=== PATIENT | female | born 1965 | race Caucasian/White ===

== ENCOUNTER 2018-01-07 19:57 | Emergency (ER) | payer OTHER ==
--- NOTE | 2018-01-07 22:29 | ER Document Report ---
ED General - General Chief Complaint: Head Injury Stated Complaint: PASSED OUT,HEAD INJURY Time Seen by Provider: 01/07/18 22:12 Notes: Patient is a 52-year-old female that comes emergency department for chief complaint of head injury and syncopal episode. She states that she went out on the porch to smoke, she states she remembers having a sharp lower abdominal cramps and then she woke up with her face on the ground. She has bruised swollen area over her left forehead. She states she bit her tongue. She denies history of seizures, she states she used to pass out frequently, she states that she remembers bearing down because of the abdominal pain and thinks this made her pass out. She denies nausea vomiting, fever or chills, chest pain , palpitations, dizziness, lightheadedness. She denies any current symptoms except for head/facial pain. She takes no daily medications, past medical history of hysterectomy, denies any other medical history. She denies alcohol or recreational drugs. TRAVEL OUTSIDE OF THE [place] IN LAST 30 DAYS: No - Related Data Allergies/Adverse Reactions: bee venom protein (honey bee) Allergy (Verified 01/07/18 20:10) Sulfa (Sulfonamide Antibiotics) Allergy (Verified 01/07/18 20:10) Past Medical History - General Information source: Patient - Social History Smoking Status: Current Every Day Smoker Chew tobacco use (# tins/day): No Smoking Education Provided: Yes - <3 min Frequency of alcohol use: None Drug Abuse: None Lives with: Family Family History: Reviewed & Not Pertinent Patient has suicidal ideation: No Patient has homicidal ideation: No Renal/ Medical History: Denies: Hx Peritoneal Dialysis Past Surgical History: Reports: Hx Hysterectomy, Hx Nose Surgery - sinus surg, nose surg, Hx Orthopedic Surgery - bunectomy - Immunizations Immunizations up to date: Yes Hx Diphtheria, Pertussis, Tetanus Vaccination: Yes Review of Systems - Review of Systems Constitutional: No symptoms reported EENT: No symptoms reported Cardiovascular: See HPI Respiratory: No symptoms reported Gastrointestinal: No symptoms reported Genitourinary: No symptoms reported Female Genitourinary: No symptoms reported Musculoskeletal: See HPI Skin: See HPI Hematologic/Lymphatic: No symptoms reported Neurological/Psychological: See HPI Physical Exam - Vital signs Vitals: Temp Pulse Resp BP Pulse Ox 98.6 F 72 16 155/74 H 97 01/07/18 20:35 01/07/18 20:35 01/07/18 20:35 01/07/18 20:35 01/07/18 20:35 - Notes Notes: GENERAL: Alert, interacts well. No acute distress. HEAD: Normocephalic; supraorbital hematoma with mild ecchymosis noted, no other injuries of the head noted EYES: Pupils equal, round, and reactive to light. Extraocular movements intact. ENT: Oral mucosa moist, tongue midline. [Nares patent, no nasal septal hematoma , TM's intact.] NECK: Full range of motion. Supple. Trachea midline. LUNGS: Clear to auscultation bilaterally, no wheezes, rales, or rhonchi. No respiratory distress. HEART: Regular rate and rhythm. No murmur ABDOMEN: Mild suprapubic tenderness, otherwise soft and benign abdomen. Non- distended. Bowel sounds present in all 4 quadrants. EXTREMITIES: Moves all 4 extremities spontaneously. No edema, normal radial and dorsalis pedis pulses bilaterally. No cyanosis. BACK: no cervical, thoracic, lumbar midline tenderness. No saddle anesthesia, normal distal neurovascular exam. NEUROLOGICAL: Alert and oriented x3. Normal speech. [cranial nerves II through XII grossly intact]. PSYCH: Normal affect, normal mood. SKIN: Warm, dry, normal turgor. No rashes or lesions noted. Course - Re-evaluation Re-evalutation: EKG shows sinus rhythm, normal NE, normal QTC, no T-wave inversions or ST segment changes in consecutive leads. Nonspecific intraventricular conduction delay. Patient had no chest pain, dizziness, she states that she was bearing down with her abdomen. Suggestive of vagal symptoms. CBC unremarkable, chemistry unremarkable, initial troponin is unremarkable. Urinalysis indicates infection. On examination patient does have suprapubic tenderness, upper abdomen is completely benign, back exam is normal, neurological exam is normal. Imaging of the face/brain shows no intracranial hemorrhage. Patient did bite her tongue but she insists that she was bearing down and then passed out, this did discuss possible seizure but this seems less likely based on her description. Specifically I questioned patient and she had no postictal phase whatsoever. Daughter confirms this. Daughter did not see her fall but denies any symptoms consistent with postictal phase. Discussed with patient. Discussed treatment for UTI, discussed syncopal episode and workup, recommended 1 troponin more because of uncertain cause of syncope, patient states that she is quite certain she was bearing down and had a vagal episode, she requests to leave, however she does agree to follow-up with primary care and she will return if she worsens, discussed return precautions. Discussed head injury precautions in detail with patient and daughter as well. They state understanding and agreement. - Vital Signs Vital signs: Temp Pulse Resp BP Pulse Ox 98.0 F 63 16 160/92 H 97 01/08/18 01:09 01/08/18 01:09 01/08/18 01:09 01/08/18 01:09 01/08/18 01:09 - Laboratory Result Diagrams: 01/07/18 22:40 01/07/18 22:40 Laboratory results interpreted by me: 01/07/18 01/07/18 01/07/18 22:40 22:40 22:53 WBC 11.8 H Chloride 108 H AST 13 L Urine Blood SMALL H Ur Leukocyte Esterase LARGE H Discharge - Discharge Clinical Impression: Episode of syncope Qualifiers: Syncope type: unspecified Qualified Code(s): R55 - Syncope and collapse Head injury Qualifiers: Encounter type: initial encounter Qualified Code(s): S09.90XA - Unspecified injury of head, initial encounter Facial hematoma Qualifiers: Encounter type: initial encounter Qualified Code(s): S00.83XA - Contusion of other part of head, initial encounter Abdominal pain Qualifiers: Abdominal location: generalized Qualified Code(s): R10.84 - Generalized abdominal pain Urinary tract infection Qualifiers: Urinary tract infection type: site unspecified Hematuria presence: with hematuria Qualified Code(s): N39.0 - Urinary tract infection, site not specified Condition: Stable Disposition: HOME, SELF-CARE Additional Instructions: Your workup indicates a bladder infection but no other abnormalities are seen. Hematoma on your face will resolve with time, you can apply ice to the area. Follow head injury precautions listed below. You will likely have a concussion , see postconcussive syndrome instructions below as well. Follow-up with primary care for additional evaluation for syncope. Return for any concerning symptoms including repeated syncope, chest pain, shortness of breath, fever, vomiting, or any other concerning symptoms. Post-Concussion Syndrome Post-concussion syndrome often follows a mild head injury. Dizziness, mild nausea, mild headache, trouble concentrating, and a general sense of "not being right" may persist for a week or two. This is a frequent complication of concussion. However, if the symptoms worsen, or new symptoms develop, you should be re-examined by the physician. There is no specific cure for post-concussion syndrome. You can take mild pain medication such as ibuprofen or acetaminophen. While you should not drive if you are dizzy, you can get back to your regular activities as quickly as the symptoms will allow. And while vigorous exercise may worsen the headache, mild physical activity often is helpful. Sitting and thinking about your symptoms will worsen them. If difficulties continue, you may need referral for special therapy to help you regain full mental function. Call the physician if you are worsening, or if symptoms are still present in one week. Report any new symptoms immediately. Head Injury Precautions At this point, there is no evidence that your head injury is serious. Observation is necessary, however. Take only clear liquids for the first few hours, unless told otherwise by the doctor. If no pain medication was prescribed, you may take acetaminophen according to the directions on the bottle. Do not take any medication that may alter your level of alertness (unless you've discussed it with the doctor first) . Limit activity for the first 24 hours. Bed rest is best. During the first 24 hours, check to see approximately every two to three hours that the patient is easily arousable, responds normally, and can perform common tasks such as walking without difficulty. Contact your doctor or go to the hospital if any of the following things occur: Persistent vomiting, difficulty in arousing the patient, worsening or continued headache, or failure to improve as expected. Head injuries can cause symptoms that persist for a few days or even a few weeks. Syncopal Episode Syncope (fainting or near-fainting) can occur from many different health problems. Or it can be a simple fainting spell requiring no treatment. It is safe for you to go home, but further evaluation will likely be necessary. Your work-up may include tests for internal bleeding, heart disease, medication problems, or near-strokes. Tests are not always required, however, depending on the nature of your problem. The warning signs of an impending faint include: dizziness, lightheadedness , nausea, hot flashes, tingling, and weakness. If this happens, lay down and put your feet up, then wait until all of these symptoms have passed before standing up again. If these episodes become recurrent, or if you develop chest pain, heart palpitations, mental confusion, blurred vision, or headache, then you should call the physician, or go to the emergency room. Prescriptions: Cephalexin Monohydrate [Keflex 500 mg Capsule] 500 mg PO QID #28 capsule Referrals: RUSTAM RAMIREZ MD [Primary Care Provider] - Follow up as needed
[2018-01-07 22:54] LABS: ABSOLUTE BASOPHILS # (AUTO) 0.1 10^3/uL (0.0-0.2); ABSOLUTE EOSINOPHILS # (AUTO) 0.3 10^3/uL (0.0-0.6); ABSOLUTE LYMPHOCYTES (AUTO) 2.4 10^3/uL (0.5-4.7); ABSOLUTE MONOCYTES (AUTO) 0.8 10^3/uL (0.1-1.4); ABSOLUTE NEUT (AUTO) 8.2 10^3/uL (1.7-8.2); BASOPHILS % (AUTO) 0.8 % (0-2); EOSINOPHILS % (AUTO) 2.1 % (0-6); HEMATOCRIT 38.1 % (36.0-47.0); HEMOGLOBIN 13.1 g/dL (12.0-15.5); LYMPHOCYTES % (AUTO) 20.2 % (13-45); MEAN CORPUSCULAR HEMOGLOBIN 32.3 pg (27.0-33.4); MEAN CORPUSCULAR HGB CONC 34.4 g/dL (32.0-36.0); MEAN CORPUSCULAR VOLUME 94 fl (80-97); MONOCYTES % (AUTO) 7.2 % (3-13); PLATELET COUNT 281 10^3/uL (150-450); RED BLOOD COUNT 4.06 10^6/uL (3.72-5.28); RED CELL DISTRIBUTION WIDTH 13.4 % (11.5-14.0); SEGMENTED NEUTROPHILS % (AUTO) 69.7 % (42-78); TOTAL CELLS COUNTED % (AUTO) 100 %; WHITE BLOOD COUNT 11.8 10^3/uL (4.0-10.5)
[2018-01-07 23:10] LABS: APPEARANCE,URINE SLIGHTLY-CLOUDY; BILIRUBIN,URINE NEGATIVE (NEGATIVE); COLOR,URINE YELLOW; GLUCOSE, URINE NEGATIVE (NEGATIVE); KETONES,URINE NEGATIVE (NEGATIVE); LEUKOCYTE ESTERASE,URINE LARGE (NEGATIVE); NITRITE,URINE NEGATIVE (NEGATIVE); PROTEIN,URINE NEGATIVE (NEGATIVE); URINE SPECIFIC GRAVITY 1.013; UROBILINOGEN,URINE NEGATIVE mg/dL (<2.0)
--- NOTE | 2018-01-07 23:23 | EKG REPORT ---
SEVERITY:- ABNORMAL ECG - SINUS RHYTHM NONSPECIFIC INTRAVENTRICULAR CONDUCTION DELAY : Confirmed by: Pete Valentin MD 07-Jan-2018 23:22:14
[2018-01-07 23:28] LABS: ALANINE AMINOTRANSFERASE 20 U/L (9-52); ALBUMIN 3.9 g/dL (3.5-5.0); ALKALINE PHOSPHATASE 78 U/L (38-126); ANION GAP 10 (5-19); ASPARTATE AMINO TRANSFERASE 13 U/L (14-36); BILIRUBIN,DIRECT 0.2 mg/dL (0.0-0.4); BILIRUBIN,TOTAL 0.2 mg/dL (0.2-1.3); BLOOD UREA NITROGEN 12 mg/dL (7-20); CARBON DIOXIDE 25 mmol/L (22-30); CHLORIDE 108 mmol/L (98-107); GLUCOSE 102 mg/dL (75-110); POTASSIUM 4.2 mmol/L (3.6-5.0); SODIUM 143.3 mmol/L (137-145); TOTAL PROTEIN 7.2 g/dL (6.3-8.2)
--- NOTE | 2018-01-08 00:06 | RADIOLOGY REPORT (SQ) ---
EXAM DESCRIPTION: CLINICAL HISTORY: head injury, syncope COMPARISON: None Available TECHNIQUE: Contiguous axial CT images of the head were obtained. Coronal and sagittal reconstructions were created from the axial data. This exam was performed according to our departmental dose-optimization program, which includes automated exposure control, adjustment of the mA and/or kV according to patient size and/or use of iterative reconstruction technique. FINDINGS: There is left preseptal soft tissue swelling. There is no evidence of acute mass, mass effect, midline shift or hemorrhage. The ventricles and extra-axial CSF spaces are unremarkable. The brain parenchyma appears normal for the patient's age. No acute abnormalities of the bones is seen. IMPRESSION: No acute intracranial abnormality.
[2018-01-08] MEDS ORDERED: CEPHALEXIN 500 MG CAPSULE PO ONE (00:42)
[2018-01-08 01:10] VITALS: BP 160/92
== END 2018-01-08 01:09 | disposition home or self-care (01) ==
LOC: ER 19:57
DX: S09.90XA Unspecified injury of head, initial encounter (principal); S00.83XA Contusion of other part of head, initial encounter; N39.0 Urinary tract infection, site not specified; R10.84 Generalized abdominal pain; R55 Syncope and collapse; W19.XXXA Unspecified fall, initial encounter; Y92.008 Other place in unspecified non-institutional (private) residence as the place of occurrence of the external cause; F17.200 Nicotine dependence, unspecified, uncomplicated; Z88.0 Allergy status to penicillin; Z91.030 Bee allergy status; Z90.710 Acquired absence of both cervix and uterus
CPT/HCPCS: 36415; 70450; 80053; 81001; 84484; 85025; 87086; 93005; 93010; 99284